=== PATIENT | female | born 2000 | race Caucasian/White ===

== ENCOUNTER 2023-08-19 19:10 | Emergency (ER) | payer OTHER, SELFPAY ==
[2023-08-19 19:13] VITALS: BP 119/69; PULSE 80; RESP 16; TEMP 36.7; O2SAT 100; BMI 22.8
--- NOTE | 2023-08-19 22:20 | ED.WOUNDLAC ---
HPI - Wound/Laceration General Chief Complaint: Wound/Laceration Stated Complaint: R/ ring finger LAC Time Seen by Provider: 08/19/23 22:20 Source: patient Mode of arrival: Ambulatory History of Present Illness HPI narrative: Otherwise healthy 23-year-old woman comes in with a laceration to her right ring finger. She was doing dishes and a knife caused a flap like laceration to the lateral edge and paronychia on the right ring finger. Does not involve the nail base, no tendon or joint involvement. Related Data Allergies Allergy/AdvReac Type Severity Reaction Status Date / Time No Known Drug Allergies Allergy Verified 08/19/23 19:12 Patient History Social History Smoking Status: Never smoker Smoking Status: Never smoker alcohol intake frequency: holidays/special occasions only Substance Use Type: does not use Exam Initial Vital Signs Initial Vital Signs: Vital Signs Temperature 98.0 F 08/19/23 19:13 Pulse Rate 80 08/19/23 19:13 Respiratory Rate 16 08/19/23 19:13 Blood Pressure 119/69 08/19/23 19:13 Pulse Oximetry 100 08/19/23 19:13 Oxygen Delivery Method Room Air 08/19/23 19:13 General: Alert appropriate in no acute distress Respiratory: Able to speak in full sentences, no obvious respiratory distress Skin: No obvious rashes, warm and dry Neurologic: Grossly intact no obvious asymmetries or abnormalities Psych: appropriate insight and affect, cooperative Extremity: Right ring finger with flap like laceration on the lateral edge extending to the paronychia but not involving the nail bed, joint space tendons or bone Procedures Laceration Repair Right ring finger: Time of procedure: 22:30 Site: hand Side (If applicable): right Size (cm): 2 Description: flap Depth: simple, single layer Local Anesthetic: lidocaine 1% Amount of anesthesia used (mL): 2 Pre-repair: wound explored and deep structures intact Skin layer closed with: nylon Skin layer suture size: 4-0 Technique: horizontal mattress Course Vital Signs Vital signs: Vital Signs - 8 hr 08/19/23 19:13 Temperature 98.0 F Pulse Rate 80 Respiratory Rate 16 Blood Pressure 119/69 Pulse Oximetry 100 Oxygen Delivery Method Room Air MDM - Wound/Laceration MDM Narrative Medical decision making narrative: CC: Laceration lateral edge right ring finger Data collected from: patient Differential considered: Superficial versus deep laceration Exam documented above, pertinent findings include: Superficial flap-like laceration involving no deeper structures Treatments: Single horizontal mattress suture placed to reapproximate the flat. Band-Aid placed. Patient tolerated the procedure well Discussion: Small laceration repaired. We will need the suture out on or about August 26. Reviewed signs and symptoms consistent with infection. No indication for antibiotics at this time. She is up-to-date on tetanus status. She is safe for discharge Discharge Plan Departure Patient Disposition: Home Clinical Impression: Laceration Instructions: DI for Minor Laceration Activity Restrictions/Additional Instructions: Thank you for coming in today We put a stitch in the small laceration to your ring finger Please keep a Band-Aid over this stitch just to keep the area clean and dry He will need the stitch removed on or about August 26. You can go to your primary care doctor, walk-in clinic or return to the emergency department If you find that you are getting worse or develop any new symptoms, please feel free to return to the emergency department for further evaluation. Referrals: Miscellaneous,MD Ilia [Primary Care Provider] - Stand Alone Forms: Patient Portal/API
== END 2023-08-19 22:47 | disposition home or self-care (01) ==
PROVIDERS: Emergency Provider Emergency Medicine
DX: S61.214A Laceration without foreign body of right ring finger without damage to nail, initial encounter (principal); W26.0XXA Contact with knife, initial encounter
CPT/HCPCS: 12001; 99281; 99283